=== PATIENT | male | born 1990 | race Hispanic/Latino ===

== ENCOUNTER 2021-11-24 07:02 | Day surgery (SDC) | payer BC, OTHER ==
[2021-11-24] MEDS ORDERED: MIDAZOLAM HCL 2 MG/2 ML INJ ONE (07:34)
[2021-11-24] MEDS ORDERED: propofoL 200 MG/20 ML VIAL IV ONE (07:34)
[2021-11-24] MEDS ORDERED: dexAMETHasone 10 MG/ML VIAL ONE (07:34)
[2021-11-24] MEDS ORDERED: ROCURONIUM 50 MG/5 ML VIAL IV ONE (07:34)
[2021-11-24] MEDS ORDERED: LIDOCAINE 2% MPF 5 ML VIAL ONE (07:34)
[2021-11-24] MEDS ORDERED: FENTANYL CITR 100 MCG/2 ML ONE ×2 (07:34→08:52)
[2021-11-24] MEDS ORDERED: LIDOCAINE 1% W/EPI 1:100,000 10 ML VIAL ONE (07:35)
[2021-11-24] MEDS ORDERED: ACETAMINOPHEN 500 MG TAB ONE (07:36)
[2021-11-24] MEDS ORDERED: CELECOXIB 100 MG CAPSULE ONE (07:37)
[2021-11-24] MEDS ORDERED: CLINDAMYCIN 900MG/D5W 900 MG/50 ML IVPB IV ONE (07:44)
[2021-11-24] MEDS: Ringers Lactate 1,000 ML IV ONE ×2 (07:45→08:38)
[2021-11-24] MEDS ORDERED: KETOROLAC 30 MG/ML INJ ONE (09:25)
--- NOTE | 2021-11-24 09:39 | P.BOP ---
Preoperative diagnosis: TGDC Postoperative diagnosis: same Primary procedure: Vernon Instrumentation Designer: NONE,NONE Estimated blood loss: 5ml Specimen: TGDC with central hyoid portion Anesthesia: General Complications: None Drain(s): Wound drain (1/4 inch isaac) Implants: Surgicel Fluids & blood products: 800ml crystalloid Transferred to: Recovery Room Condition: Good
[2021-11-24 10:10] VITALS: O2SAT 100
[2021-11-24 11:03] VITALS: BP 129/52; TEMP 96.9
[2021-11-24] MEDS ORDERED: IBUPROFEN 400 MG TAB ONE (11:28)
--- NOTE | 2021-11-25 02:32 | OP ---
Date of Procedure: 11/24/2021 Surgeon: Brielle Crook MD Landscape Drafter: None. Preoperative Diagnosis: Thyroglossal duct cyst. Postoperative Diagnosis: Thyroglossal duct cyst. Procedure: Vernon, excision of thyroglossal duct cyst including portion of hyoid. Estimated Blood Loss: 5 mL. Specimen: Thyroglossal duct cyst with central portion of hyoid. Anesthesia: General. Complications: None. Drains: Quarter-inch [place]. Implants: Surgicel. Indication For Procedure: Vasu Fair presented to the clinic with a neck mass with exam findin gs and ultrasound suggestive of thyroglossal duct cyst. The patient initially elected for observatio nal course, but upon later infection and spontaneous drainage through the skin, he elected for surgic al resection. The risks, benefits, and alternatives to the procedure were discussed with the patient prior to surgery and he agreed to proceed. Description Of Procedure: The patient was brought to the operating room. He was placed under genera l anesthesia via oral endotracheal tube. The patient's shoulder roll was placed and the neck was ext ended. The area of the thyroglossal duct cyst was adherent to the skin and was noted to have some ar eas of acute infection with a small very superficial area of abscessed appearing tissue. There was m inimal surrounding cellulitis and decision was made to proceed with surgery. The planned incision si te was injected with approximately 6 mL of local anesthetic. The patient received preoperative antib iotics administered by the Anesthesia Team and the neck was prepped in sterile fashion using Betadine and draped in accordance for anterior neck surgery. Incision including a horizontally oriented bubba pse encompassing the skin adherent to the underlying thyroglossal duct cyst with the associated small abscess cavity was designed and composed approximately 4 x 1.5 cm. The skin was incised using Bovie electrocautery and the lateral portions of skin were elevated from the underlying tissue. The centr al portion was carefully dissected down leaving a core with areas of tissue tracking down towards the hyoid bone. The strap muscles were identified and retracted laterally. As dissection carried down, attention was paid to avoid entering or disrupting the tract of the duct. The hyoid bone was locate d by palpation and was carefully skeletonized circumferentially using Bovie electrocautery as well as a Galt elevator. The hyoid bone was cut using medium-size bone snips and heavy scissors. Once the bone was freed from its lateral attachments, Bovie electrocautery and a Galt elevator were used to carefully elevate the tissues from the deep aspect of the hyoid, taking care to avoid accidental entr y into the pharynx or oral cavity. During retraction, the thyroglossal duct was encountered. The so ft tissue of the thyroglossal duct cyst was avulsed from the hyoid and set aside. The hyoid bone was then grasped with an Allis for manipulation during the final stages of removal. Once removed, the s urgical cavity was carefully inspected. There were small areas of oozing near the cut aspect of the bone, but cautery was avoided in order to reduce risk of hypoglossal or nerve injury or accidental en try into the pharynx or base of tongue tissues. On careful inspection, there did not appear to be an y extension of the thyroglossal duct cyst into the tissues of the tongue. The surgical cavity was fi lled with saline and a Valsalva with the endotracheal tube cuff deflated with manual occlusion of the nose and mouth, failed to reveal any evidence of microscopic injury into the upper aerodigestive tra ct. After suctioning and reinspection, there was no significant bleeding. Small portions of Surgice l were placed within the surgical cavity near the cut edges of the bone in order to ensure hemostasis . A quarter-inch Anurag was then placed into this space. The strap muscles were approximated with a single suture in the midline, including the deeper and superficial strap muscles. The platysmal la niels was then closed in an interrupted fashion using 4-0 Vicryl buried sutures. The drain was laid ou t under the platysmal flaps towards the left corner of the incision to allow for egress of fluid from the deeper aspects of the wound. The skin was then closed using a 5-0 Monocryl in a subcuticular fa shion, leaving the drain at the lateral most aspect of the incision. After cleaning of the skin, a g auze sponge was placed around the Anurag and secured with surgical tape. A Steri-Strip was applied to the incision and the procedure was concluded. The patient was returned to care of Anesthesia for awakening and extubation in the operating room, which proceeded without difficulty. Complications: None. Disposition: The patient will be discharged home later today in the care of his family. His , lorraine wood is a nurse is instructed to remove the bandage and to remove the Anurag with gentle manual pressu re on postoperative day 1. If she is not able to comfortably remove the drain or has any questions o r concerns, she is instructed to contact Dr. Crook for removal in the office. BLAZE/GEORGE Voice ID: [id number] Report ID: [id number]
== END 2021-11-24 11:46 | disposition home or self-care (01) ==
LOC: OR 07:02
PROVIDERS: ATTEND Otolaryngology
PROC: 0WB60ZX Excision of Neck, Open Approach, Diagnostic (ICD-10-PCS; principal; 2021-11-24 08:00)
DX: Q89.2 Congenital malformations of other endocrine glands (principal); R03.0 Elevated blood-pressure reading, without diagnosis of hypertension; E66.3 Overweight; Z20.822 Contact with and (suspected) exposure to COVID-19
CPT/HCPCS: 88305; 88311; 60280; U0002; J2704; J2250; J3010 ×2; J1100; J7120; 88304